=== PATIENT | female | born 1985 | race Caucasian/White ===

== ENCOUNTER 2022-06-27 19:57 | Emergency (ER) | payer BC, OTHER ==
[~2022-06-27] VITALS: Ht 175.3 cm; Wt 127.0 kg
[2022-06-27] MEDS ORDERED: XANAX1 MG PO (20:09)
--- NOTE | 2022-06-27 22:23 | EKG ---
[facility] [address] [facility] [place] [address] Signed Normal sinus rhythm with sinus arrhythmia Nonspecific ST abnormality Abnormal ECG No previous ECGs available Confirmed by Oliver Morgan MD () on 06/27/2022 10:23:47 PM Electronically Signed By: OLIVER MORGAN MD 06/27/222222 PATIENT NAME: EMERITA LAGUNAS Electrocardiogram DATE OF : 81 PHYSICIAN: OLIVER MORGAN MD REPORT #: [id number] REPORT IS CONFIDENTIAL AND NOT TO BE RELEASED WITHOUT AUTHORIZATION
== END 2022-06-27 22:00 | disposition home or self-care (01) ==
LOC: ED 19:57
DX: F41.9 Anxiety disorder, unspecified (principal)
CPT/HCPCS: 36415; 71046; 80053; 84484; 85025; 93005; 93010; 99284-25

== ENCOUNTER 2024-02-25 20:03 | Emergency (ER) | payer BC, OTHER ==
[~2024-02-25] VITALS: Ht 175.3 cm; Wt 131.0 kg
[~2024-02-25 20:03] MED LIST: DOXEPIN HCL25 MG PO; HYDROXYZINE HCL10 MG PO; PAXLOVID 300-11 EACH PO; TRIAMCINOLONE A15 G3 TOP; VENLAFAXINE HCL75 M1 PO; VITAMIN D21250 MCG PO; XANAX1 MG PO
[2024-02-25] MEDS ORDERED: LURASIDONE HCL40 MG PO (20:52)
[2024-02-25] MEDS ORDERED: CLONIDINE HCL0.1 MG PO (20:52)
[2024-02-25] MEDS ORDERED: AMOX TR-K CLV1 EAC1 PO (20:54)
[2024-02-25] MEDS ORDERED: AMOXICILLIN/CLAVULANATE K 875 MG TAB PO ONE (21:00)
[2024-02-25] MEDS ORDERED: ACETAMINOPHEN 500 MG TAB PO ONE (21:00)
[2024-02-25] MEDS ORDERED: DIPHTH,PERTUSS(ACELL),TET VAC 0.5 ML SYRINGE IM ONE (21:00)
[2024-02-25 21:18] VITALS: BP 151/105
== END 2024-02-25 21:18 | disposition home or self-care (01) ==
LOC: ED 20:03
DX: S51.852A Open bite of left forearm, initial encounter (principal); W54.0XXA Bitten by dog, initial encounter; Z79.899 Other long term (current) drug therapy; Z23 Encounter for immunization
CPT/HCPCS: 90715; A9270

== ENCOUNTER 2024-12-17 20:25 | Emergency (ER) | payer BC ==
[~2024-12-17] VITALS: Ht 175.3 cm; Wt 130.0 kg
[~2024-12-17 20:25] MED LIST changes: +AMOX TR-K CLV1 EAC1 PO; +CLONIDINE HCL0.1 MG PO; +LURASIDONE HCL40 MG PO
[2024-12-17] MEDS ORDERED: ZEPBOUND2.5 MG/0.5 SQ (21:54)
[2024-12-17] MEDS ORDERED: KETOROLAC TROMETHAMINE 30 MG/ML VIAL IV ONE (22:00)
[2024-12-17] MEDS ORDERED: METOCLOPRAMIDE HCL 10 MG/2 ML SDV IV ONE (22:00)
[2024-12-17] MEDS ORDERED: diphenhydrAMINE HCL 50 MG/ML VIAL IV ONE (22:00)
[2024-12-17] MEDS ORDERED: SUMAtriptan succinate 6 MG/0.5 ML VIAL SUB-Q ONE (22:15)
[2024-12-17] MEDS ORDERED: IMITREX50 MG PO (22:46)
[2024-12-17 23:11] VITALS: BP 125/82
== END 2024-12-17 23:13 | disposition home or self-care (01) ==
LOC: ED 20:25
DX: G43.909 Migraine, unspecified, not intractable, without status migrainosus (principal); F43.10 Post-traumatic stress disorder, unspecified; Z79.2 Long term (current) use of antibiotics; Z79.899 Other long term (current) drug therapy
CPT/HCPCS: 96374; 96375; 99283-25; J1200; J1885; J2765; J3030